=== PATIENT | female | born 1975 | race African-American/Black ===

== ENCOUNTER 2017-01-24 15:45 | Emergency (ER) | payer MEDICARE, OTHER ==
[~2017-01-24] VITALS: Ht 162.6 cm; Wt 61.2 kg
[2017-01-24] MEDS ORDERED: KEPPRA750 MG ORAL (15:49)
[2017-01-24 15:50] VITALS: BP 116/77
--- NOTE | 2017-01-24 16:15 | Emergency Room Report ---
History of Present Illness General Chief Complaint: Skin Rash/Abscess Source: Patient Present Illness HPI Patient is a 41-year-old female with no significant past medical history who presents today with complaints of insect bites to her bilateral upper extremities. She states that the lesions or itching. She hasn't taken any medication for pain. She denies fevers, chills or associated symptoms Allergies: Coded Allergies: No Known Allergies (Unverified , 01/24/17) Patient History Last Menstrual Period: 01/17/17 Reviewed Nursing Documentation: PMH: Agreed, PSxH: Agreed Nursing Documentation-PMH Past Medical History: No History, Except For Hx Seizures: Yes Review of Systems All Other Systems: negative except mentioned in HPI Physical Exam Vital Signs Date Time Temp Pulse Resp B/P (MAP) Pulse Ox O2 Delivery O2 Flow Rate FiO2 01/24/17 15:47 98.2 83 16 116/77 99 Room Air Sp02 EP Interpretation: reviewed, normal General Appearance: no apparent distress, alert, GCS 15, non-toxic Head: normocephalic, atraumatic Eyes: bilateral eye normal inspection, bilateral eye PERRL ENT: hearing grossly normal, normal pharynx, no angioedema, normal voice Neck: full range of motion, supple/symm/no masses Respiratory: chest non-tender, lungs clear, normal breath sounds, speaking full sentences Cardiovascular #1: regular rate, rhythm, no edema Cardiovascular #2: 2+ carotid (R), 2+ carotid (L), 2+ radial (R), 2+ radial (L) , 2+ dorsalis pedis (R), 2+ dorsalis pedis (L) Gastrointestinal: normal bowel sounds, non tender, soft, non-distended, no guarding, no rebound Rectal: deferred Genitourinary: normal inspection, no CVA tenderness Musculoskeletal: back normal, gait/station normal, normal range of motion, non- tender, calf tenderness Neurologic: alert, oriented x3, responsive, motor strength/tone normal, sensory intact, speech normal Psychiatric: judgement/insight normal, memory normal, mood/affect normal, no suicidal/homicidal ideation Reflexes: 3+ bicep (R), 3+ bicep (L), 3+ tricep (R), 3+ tricep (L), 3+ knee (R) , 3+ knee (L) Skin: normal color, no rash, warm/dry, well hydrated, other - several small insect bites noted on the forearms, no evidence of infection Lymphatic: no adenopathy Medical Decision Making PA Attestation supervising physician is Dr. Fry Diagnostic Impression: Primary Impression: Insect bite ER Course Patient was found to have several small insect bites noted on the forearms consistent with likely mosquito bites. No evidence of infection. Any antibiotic management at this time. Patient is given symptomatic relief. Instructed to follow up with PCP for reevaluation as needed. Last Vital Signs Date Time Temp Pulse Resp B/P (MAP) Pulse Ox O2 Delivery O2 Flow Rate FiO2 01/24/17 15:50 98.2 16 116/77 99 Room Air 01/24/17 15:47 83 Status: improved Disposition: HOME, SELF-CARE Condition: Stable Jacki Wilder Jan 24, 2017 16:15
[2017-01-24 16:20] VITALS: BP 116/77
== END 2017-01-24 16:20 | disposition home or self-care (01) ==
LOC: EMR 16:12
DX: S50.862A Insect bite (nonvenomous) of left forearm, initial encounter (principal); S50.861A Insect bite (nonvenomous) of right forearm, initial encounter; W57.XXXA Bitten or stung by nonvenomous insect and other nonvenomous arthropods, initial encounter; Y92.89 Other specified places as the place of occurrence of the external cause
CPT/HCPCS: 99282